=== PATIENT | male | born 1950 | race Caucasian/White ===

== ENCOUNTER → 2017-09-29 08:41 | Outpatient (CLI) | payer BC, SELFPAY ==
[2017-09-29 08:51] LABS: Bacteria 0 SEEN /hpf (None Seen); Mucous, Urine 0 SEEN /hpf (<or=2+); Red Blood Cells-Urine 0 SEEN /hpf (0-5); Squamous Epithelial Cells - UA 0 SEEN /hpf (0-5); White Blood Cells 0 SEEN /hpf (0-5)
[2017-09-29 09:23] LABS: Color, Urine Yellow (Yellow); Glucose, Dipstick Normal (Normal); Ketone-Dipstick Negative (Negative); Leukocyte Esterase-Dipstick Negative /ul (Negative); Nitrite-Dipstick Negative (Negative); Occult Blood-Urine Negative /ul (Negative); Protein-Dipstick Negative (Negative); Urine Bilirubin Dipstick Negative (Negative); Urine Clarity Clear (Clear); Urine Urobilinogen Normal (Normal)
[2017-09-29 09:38] LABS: Absolute Lymphocyte Count 1.22 X10^3/ul (0.83-4.51); Absolute Neutrophil Count 4.9 X10^3/uL (2.0-7.7); Basophil# 0.03 X10^3/uL; Basophil% 0.4 % (0-1); Eosinophil# 0.15 X10^3/uL; Eosinophils% 2.2 % (0-5); Lymphocyte # 1.22 X10^3/ul (4.0); Lymphocyte % 17.5 % (19-41); Mean Corp Hgb Conc 34.8 g/gl (32-36); Mean Corpuscular Hgb 32.5 pg (27.0-32.0); Mean Corpuscular Volume 93.4 fL (80-94); Mean Platelet Vol. 10.4 fl (6.2-12.0); Monocyte# 0.64 X10^3/uL; Monocyte% 9.2 % (0-10); Neutrophil % 70.4 % (47-70); Platelet Count 161 K/mm3 (150-450); RBC Distribution Width CV 13.5 % (11.6-14.6); RBC Distribution Width SD 46.2 fl (35.1-43.9); Red Blood Count 5.57 M/mm3 (4.6-6.2)
[2017-09-29 09:44] LABS: Microalbumin,Random Urine 6.1 mg/L (NO RANGE EST.); Microalbumin:Creatinine Ratio 5.2 mg/g CRE (<30 mg/g CRE)
[2017-09-29 09:52] LABS: Hemoglobin 18.1 g/dl (13.0-16.5); POSITIVE COUNT NO; POSITIVE DIFFERENTIAL NO; POSITIVE MORPHOLOGY NO
[2017-09-29 10:10] LABS: ALB/GLOB Ratio 1.2 RATIO (0.9-2.4); AST(SGOT) 29 U/L (15-37); Alanine Aminotransfer ALT/SGPT 35 U/L (16-61); Alkaline Phosphatase 69 U/L (45-117); Anion Gap 8 (5-15); BUN 13 mg/dL (7-18); BUN/Creat Ratio 14.6 RATIO (10-20); Calcium,Total 8.4 mg/dL (8.5-10.1); Chloride 98 mmol/L (98-107); Creatinine, Serum 0.89 mg/dL (0.70-1.30); EST Glomerular Filtration Rate 90 mL/min (>60); Est Glom Filt Rate - Afr Amer 109 mL/min (>60); Globulin 3.3 g/dL (2.2-4.2); Glucose 101 mg/dL (74-106); Potassium 3.8 mmol/L (3.5-5.1); Protein, Total 7.3 g/dL (6.4-8.2); Sodium Level 134 mmol/L (136-145); Thyroid Stim Hormone (TSH) 1.87 uIU/mL (0.358-3.74)
[2017-10-02 15:30] LABS: CHOLESTEROL TOTAL 168 mg/dL (100-199); HDL-C 43 mg/dL (>39); HDL-P TOTAL 29.5 umol/L (>=30.5); SMALL LDL-P 572 nmol/L (<=527); TRIGLYCERIDES 133 mg/dL (0-149)
[2017-10-03 10:28] LABS: LDL SIZE 20.6 nm (>20.5); LDL-C 98 mg/dL (0-99); LDL-P 1362 nmol/L (<1000); LP-IR SCORE ** 67 (<=45)
== END ==
PROVIDERS: Family Provider Internal Medicine; PCP Internal Medicine; Visit Provider Internal Medicine
DX: I10 Essential (primary) hypertension (principal); Z51.81 Encounter for therapeutic drug level monitoring; E78.2 Mixed hyperlipidemia
CPT/HCPCS: 36415; 80053; 80061; 81001; 82043; 82570; 83704; 84153; 84403; 84443; 85025; G0103

== ENCOUNTER → 2018-07-03 15:22 | Outpatient (CLI) | payer BC, SELFPAY ==
[2014-08-18 07:50] VITALS: BMI 30.8
== END ==
PROVIDERS: Family Provider Internal Medicine; PCP Internal Medicine; Referring Provider Otolaryngology Otolaryngology/Facial Plastic Surgery; Visit Provider Otolaryngology Otolaryngology/Facial Plastic Surgery
DX: J32.9 Chronic sinusitis, unspecified (principal)
CPT/HCPCS: 87070; 87077; 87186; 87205

== ENCOUNTER → 2018-10-10 | Outpatient (CLI) | payer BC, SELFPAY ==
[2014-08-18 07:50] VITALS: BMI 30.8
--- NOTE | 2018-10-10 11:29 | RAD_ITS ---
STUDY: X-RAY - CERVICAL SPINE REASON FOR EXAM: Male, 67 years old. Neck pain and stiffness TECHNIQUE: 7 view(s) of the cervical spine were obtained. COMPARISON: None FINDINGS: Normal anterior atlantoaxial articulation. Normal odontoid process. There is straightening of the normal cervical lordosis. There is multi-level endplate spondylosis. There is multi-level degenerative disc disease with multilevel disc space narrowing. There is multi-level osseous foraminal stenosis. The soft tissue structures are unremarkable. RAD/Cerv Spine 4 or 5 Views IMPRESSION: Multilevel degenerative changes, no acute findings Electronically Signed: Monico Gutierrez MD at 11:56 EDT , Service support ,
== END | disposition home or self-care (01) ==
LOC: HPRAD 11:27
PROVIDERS: Family Provider Internal Medicine; PCP Internal Medicine; Referring Provider Internal Medicine; Visit Provider Internal Medicine
DX: M54.2 Cervicalgia (principal)
CPT/HCPCS: 72050

== ENCOUNTER → 2019-01-04 12:08 | Outpatient (CLI) | payer BC, SELFPAY ==
[2014-08-18 07:50] VITALS: BMI 30.8
[2019-01-04 13:20] LABS: PSA,Total - Annual Screen 4.16 ng/mL (0.00-4.00)
== END ==
PROVIDERS: Family Provider Internal Medicine; PCP Internal Medicine; Referring Provider Nurse Practitioner Adult Health; Visit Provider Nurse Practitioner Adult Health
DX: Z12.5 Encounter for screening for malignant neoplasm of prostate (principal)
CPT/HCPCS: 36415; 84153; G0103

== ENCOUNTER → 2019-02-05 08:00 | Outpatient (CLI) | payer BC, SELFPAY ==
--- NOTE | 2019-02-05 08:00 | PROSBIL_PTH ---
PATIENT: SACHIN EASTMAN LOC: ANTOINETTE U#:[id number] AGE/SX: 74/M ROOM: RE02/05/[address]: Dr. Alexis Hernandez MD : 1950 BED: DIS: SPEC #: [id number] RECD: 02/06/19 09:35 STATUS: LU AILYN #: [id number] LOU: 02/05/19 08:[address]: Alexis Hernandez DEPT: SURGICAL PATHOLOGY RECD BY: Clayton Frazier ENTERED: 02/06/19 09:36 SP TYPE: PROST BX NHGIA DR: Dr. Jes Nazario DO Tissues: A - PROSTATE RIGHT B - PROSTATE RIGHT C - PROSTATE RIGHT D - PROSTATE LEFT E - PROSTATE LEFT F - PROSTATE LEFT Procedures: PROSTATE BX HEADER OPERATION: Prostate biopsy PRE-OP DIAGNOSIS: Elevated PSA TISSUE SUBMITTED: A - Right apex, B - Right mid, C - Right base, D - Left apex, E - Left mid, F - Left base MICROSCOPIC DIAGNOSIS A. Right prostate, apex, core biopsy: Prostatic tissue, negative for malignancy. B. Right prostate, mid, core biopsy: Prostatic tissue, negative for malignancy. C. Right prostate, base, core biopsy: Prostatic tissue, negative for malignancy. D. Left prostate, apex, core biopsy: Prostatic tissue, negative for malignancy. Focal mild chronic inflammation. E. Left prostate, mid, core biopsy: Prostatic tissue, negative for malignancy. Focal mild chronic inflammation. F. Left prostate, base, core biopsy: Prostatic tissue, negative for malignancy. Focal mild chronic inflammation. SJ:karla 02/07/19 MICROSCOPIC DESCRIPTION Slides are reviewed. GROSS DESCRIPTION A - Received is one container designated prostate, right apex. The specimen consists of two elongated fragments of light ziegler-white soft tissue measuring 0.3 and 1 cm in length and 0.1 cm in diameter. The specimen is totally submitted in one cassette. B - Received is one container designated prostate, right mid. The specimen consists of two elongated fragments of light ziegler-white soft tissue each measuring 1 cm in length and 0.1 cm in diameter. The specimen is totally submitted in one cassette. C - Received is one container designated prostate, right base. The specimen consists of two elongated fragments of light ziegler-white soft tissue measuring 0.5 and 0.7 cm in length and 0.1 cm in diameter. The specimen is totally submitted in one cassette. D - Received is one container designated prostate, left apex. The specimen consists of one elongated fragment of light ziegler-white soft tissue measuring 1.2 cm in length and 0.1 cm in diameter. The specimen is totally submitted in one cassette. E - Received is one container designated prostate, left mid. The specimen consists of two elongated fragments of light ziegler-white soft tissue measuring 1.5 and 2 cm in length and 0.1 cm in diameter. The specimen is totally submitted in one cassette. F - Received is one container designated prostate, left base. The specimen consists of two elongated fragments of light ziegler-white soft tissue measuring 1.2 and 1.7 cm in length and 0.1 cm in diameter. The specimen is totally submitted in one cassette. / SJ:rg 02/06/19 TC:[address] [facility]: [id number] ADDENDUM ADDENDUM ADDENDUM ADDENDUM ADDENDUM ADDENDUM 02/08/2019 09:38 ADDENDUM 02/08/2019 09:38 ADDENDUM 02/08/2019 09:38 ADDENDUM 02/08/2019 09:38 ADDENDUM 02/08/2019 09:38 A. Right prostate, apex, core biopsy: During QC review by Dr. 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 SJ:karla 02/08/19
== END ==
PROVIDERS: Family Provider Internal Medicine; PCP Internal Medicine; Referring Provider Urology; Visit Provider Urology
DX: N41.9 Inflammatory disease of prostate, unspecified (principal); R97.20 Elevated prostate specific antigen [PSA]
CPT/HCPCS: 88305; G0416

== ENCOUNTER → 2019-02-22 11:01 | Outpatient (CLI) | payer BC, SELFPAY ==
[2014-08-18 07:50] VITALS: BMI 30.8
[2019-02-22 12:48] LABS: Estradiol 23.9 pg/mL
[2019-02-25 15:08] LABS: Testosterone, % Free 3.34 % (1.50-4.20); Testosterone, Free 21.88 ng/dL (5.00-21.00)
[2019-02-25 22:41] LABS: Testosterone, Total 655 ng/dL (264-916)
== END ==
PROVIDERS: Family Provider Internal Medicine; PCP Internal Medicine
DX: E29.1 Testicular hypofunction (principal)
CPT/HCPCS: 36415; 82627; 82670; 84402; 84403; 82626

== ENCOUNTER 2020-04-07 12:11 | Outpatient (CLI) | payer BC, SELFPAY ==
[2019-05-27 15:09] VITALS: BMI 32.6
[2020-04-07 12:35] VITALS: BP 151/91; PULSE 97; RESP 18; TEMP 37.3; O2SAT 97; BMI 31.2
[2020-04-07 13:35] VITALS: BP 147/87; PULSE 88; RESP 20; TEMP 37.8; O2SAT 96
[2020-04-07 14:05] VITALS: BP 150/83; PULSE 88; RESP 18; TEMP 37.6; O2SAT 97
[2020-04-07 14:25] VITALS: BP 152/84; PULSE 85; RESP 18; TEMP 37.8; O2SAT 97
[2020-04-07 14:55] VITALS: BP 155/92; PULSE 90; RESP 18; TEMP 37.9; O2SAT 99
[2020-04-07 15:25] VITALS: BP 153/88; PULSE 90; RESP 18; TEMP 37.8; O2SAT 98
== END 2020-04-07 15:39 | disposition home or self-care (01) ==
LOC: MS2OUT 12:12 → MS2 12:13
PROVIDERS: PCP Internal Medicine; Referring Provider Nurse Practitioner Acute Care; Visit Provider Nurse Practitioner Acute Care
DX: U07.1 COVID-19 (principal)
CPT/HCPCS: 96365; J7050; M0239; Q0239

== ENCOUNTER 2020-08-21 07:12 | Day surgery (SDC) | payer BC, SELFPAY ==
[2020-08-21] VITALS (7 sets, daily range): BP systolic 88–163; BP diastolic 49–88; PULSE 57–71; RESP 16; TEMP 36.1–36.8; O2SAT 94–100; BMI 30.9
[2020-08-21] MEDS: Lactated Ringers 1,000 ML 100 ML IV (07:53)
--- NOTE | 2020-08-21 07:55 | H&P.OPEN ---
HPI - General HPI Narrative SACHIN EASTMAN, is a 69 M who presents for surveillance colonoscopy. The patient has last colonoscopy 5 years ago. The patient does have personal history of adenomatous polyps. Patient denies any abdominal pain or blood in his stool. He has no family history of colon cancer. [facility] Medical History (Updated 08/21/20 @ 07:[address] Get Boyle MD) Back pain DDD (degenerative disc disease), lumbar Hemorrhoids HLD (hyperlipidemia) HTN (hypertension) Hyperglycemia, unspecified Non-smoker Segmental and somatic dysfunction of lumbar region Segmental and somatic dysfunction of pelvic region Wears dentures Home Medications hydrochlorothiazide 25 mg PO DAILY 08/18/14 [History Last Taken Unknown] losartan 100 mg tablet 100 mg PO DAILY 05/04/19 [History Last Taken Unknown] ascorbate calcium (vitamin C) 500 mg tablet 1,000 mg PO BID 04/07/20 [History Last Taken Unknown] aspirin 81 mg tablet,delayed release 81 mg PO DAILY 04/07/20 [History Last Taken Unknown] beta carotene 10,000 unit capsule 10,000 unit PO DAILY 04/07/20 [History Last Taken Unknown] icosapent ethyl 1 gram capsule 2 g PO BID 04/07/20 [History Last Taken Unknown] mupirocin 2 % topical ointment 1 applic TOPICAL TID 04/07/20 [History Last Taken Unknown] naproxen sodium 220 mg capsule 220 mg PO Q6H PRN cap 04/07/20 [History Last Taken Unknown] niacin 500 mg tablet,extended release 24 hr 500 mg PO QHS 04/07/20 [History Last Taken Unknown] sildenafil 100 mg tablet 100 mg PO DAILY PRN 04/07/20 [History Last Taken Unknown] tadalafil 5 mg tablet 5 mg PO DAILY 04/07/20 [History Last Taken Unknown] testosterone 20.25 mg/1.25 gram (1.62 %) transdermal gel pump 3 pump TOPICAL DAILY 04/07/20 [History Last Taken Unknown] vitamin E (dl, acetate) 45 mg (100 unit) capsule 100 unit PO DAILY 04/07/20 [History Last Taken Unknown] zinc 50 mg tablet 50 mg PO DAILY 04/07/20 [History Last Taken Unknown] calcium carb,[id number] D3 1 tab PO DAILY 08/11/20 [History Last Taken Unknown] prasterone (dhea) [DHEA] 25 mg PO DAILY 08/11/20 [History Last Taken Unknown] procyanidolic oligomers [Pycnogenol] 1 mg PO DAILY 08/11/20 [History Last Taken Unknown] vitamin B complex 1 tab PO DAILY 08/11/20 [History Last Taken Unknown] Allergy/AdvReac Type Severity Reaction Status Date / Time No Known Allergies Allergy Verified 08/21/20 07:47 Family History Mother Hypertension Surgical History (Updated 08/11/20 @ 09:21 by Haydee Lucai) H/O basal cell carcinoma excision Social History (Updated 04/07/20 @ 09:21 by Patience Molina 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, 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) Smoking Status: Never smoker alcohol intake: current alcohol intake frequency: 0-2 drinks per day Alcohol type: beer Past Medical/Surgical History Planned Operation Planned Operative Procedure/s: COLONOSCOPY Previous Hospitalizations/Surgeries HX Hospitalizations: No Any Problems With Anesthesia: No You/Your Family Experience Fever (Hyperthermia) With Anes: No Cholinesterase deficiency: No Cardiovascular Hx Hypertension: Yes (CONTROLLED ON MED) Respiratory Hx Sleep Apnea: No Hx Respiratory Tract Infection/Cold (presently): No Do You Snore Loudly (louder than talking or can be heard): No Do You Often Feel Tired/ Fatigued/ Sleepy Dring Daytime?: No Has Anyone Observed You Stop Breathing During Sleep?: No Result (for STOP score): Negative Smoking Status: Never smoker Neurological Does patient have nerve stimulator: No Miscellaneous Recent Exposure to Contagious Disease: No Allergies No Known Allergies Allergy (Verified 08/21/20 07:47) Discharge Is Pt Admitted From a Long-Term, or a Retirement: No After D/C, Where Do you Plan to Go: Return Home Vital Signs Vital Signs Vital Signs: 08/21/20 07:48 Temperature 98.3 F Temperature Source Temporal Pulse Rate 71 Respiratory Rate 16 Respiratory Pattern Normal Blood Pressure 163/88 H Blood Pressure Mean 113 Blood Pressure Source Monitor Blood Pressure Position Semi-Fowlers Blood Pressure Location Left Arm Pulse Ox 100 Oxygen Delivery Method Room Air Physical Exam Const alert and oriented x3 Resp normal respiratory effort Cardio regular rate and regular rhythm GI normal to inspection, nondistended, normoactive bowel sounds Assessment & Plan Assessment/Plan (1) History of colon polyps: PLAN: Patient has a history of colon polyps and his last colonoscopy was 5 years ago. The patient requires surveillance colonoscopy. I explained endoscopy in detail to the patient. I explained the risks including but not limited to stroke or heart attack with anesthesia, perforation of the GI tract, bleeding, infection. I explained that any of these could necessitate further emergency surgery. The patient understands and all questions were answered sufficiently. The patient wishes to proceed with procedure. Get Boyle MD Pager: [facility] [address] [place] [address] Office: Surgery Risks - Colonoscopy Risks Include but are not Limited To: Risks include but are not limited to: Bleeding, perforation requiring further surgery, inability to complete colonoscopy requiring barium enema.
--- NOTE | 2020-08-21 08:29 | OP.CCLET_ITS ---
08/21/2020 Jes Nazario [address] [place] [address] Re : Colonoscopy procedure for [facility] Dear Dr. Nazario This procedure was performed on Friday, August 21, 2020. My impressions and recommendations are as follows: Impressions : - Non-bleeding internal hemorrhoids. - The examination was otherwise normal on direct and retroflexion views. - No specimens collected. Recommendations : - Discharge patient to home. - Resume previous diet. - Continue present medications. - Repeat colonoscopy is not recommended due to current age (66 years or older) for screening purposes. My findings are described in the full procedure note, which is enclosed. If I can be of further assistance, please feel free to contact me at Doctor phone number(s): , Work: . Sincerely, Get Boyle MD 08/21/2020 8:28:46 AM This report has been signed electronically.
--- NOTE | 2020-08-21 08:29 | OP.COLON_ITS ---
Patient Name: Ranjit Louis Procedure Date: 08/21/2020 7:54 AM Date of : 1950 Age: 69 Procedure: Colonoscopy Indications: Surveillance: Personal history of adenomatous polyps on last colonoscopy 5 years ago Providers: Get Boyle MD Medicines: Monitored Anesthesia Care Patient Profile: This is a 69 year old male. Refer to note in patient chart for documentation of history and physical. Last Colonoscopy: 5 years ago. Complications: No immediate complications. Estimated blood loss: Minimal. Procedure: Pre-Anesthesia Assessment: - Prior to the procedure, a History and Physical was performed, and patient medications and allergies were reviewed. The patient's tolerance of previous anesthesia was also reviewed. The risks and benefits of the procedure and the sedation options and risks were discussed with the patient. All questions were answered, and informed consent was obtained. Prior Anticoagulants: The patient has taken no previous anticoagulant or antiplatelet agents. After reviewing the risks and benefits, the patient was deemed in satisfactory condition to undergo the procedure. After I obtained informed consent, the scope was passed under direct vision. Throughout the procedure, the patient's blood pressure, pulse, and oxygen saturations were monitored continuously. The Colonoscope was introduced through the anus and advanced to the cecum, identified by appendiceal orifice and ileocecal valve. The colonoscopy was performed without difficulty. The patient tolerated the procedure well. The quality of the bowel preparation was good. Scope In: Scope Withdrawal Time 0 hours 6 minutes 7 seconds Scope Out: 8:23:00 AM Findings: Non-bleeding internal hemorrhoids were found during retroflexion. The exam was otherwise without abnormality on direct and retroflexion views. Impression: - Non-bleeding internal hemorrhoids. - The examination was otherwise normal on direct and retroflexion views. - No specimens collected. Recommendation: - Discharge patient to home. - Resume previous diet. - Continue present medications. - Repeat colonoscopy is not recommended due to current age (66 years or older) for screening purposes. Procedure Code(s): --- Professional --- 30690, Colonoscopy, flexible; diagnostic, including collection of specimen(s) by brushing or washing, when performed (separate procedure) Diagnosis Code(s): --- Professional --- Z86.010, Personal history of colonic polyps K64.8, Other hemorrhoids CPT copyright 2017 [employer]. All rights reserved. The codes documented in this report are preliminary and upon cigarette examiner review may be revised to meet current compliance requirements. Get Boyle MD 08/21/2020 8:28:46 AM This report has been signed electronically. Number of Addenda: 0 Note Initiated On: 08/21/2020 7:54 AM
== END 2020-08-21 09:27 ==
LOC: EN 07:18 → AC 07:19
PROVIDERS: Surgery; PCP Internal Medicine; Referring Provider Internal Medicine; Visit Provider Surgery
PROC: 0DJD8ZZ Inspection of Lower Intestinal Tract, Via Natural or Artificial Opening Endoscopic (ICD-10-PCS; CPT 45378; principal; 2020-08-21 08:10)
DX: Z86.010 Personal history of colon polyps (principal); K64.8 Other hemorrhoids; I10 Essential (primary) hypertension; E78.5 Hyperlipidemia, unspecified; M51.36 Other intervertebral disc degeneration, lumbar region; Z79.82 Long term (current) use of aspirin; Z79.899 Other long term (current) drug therapy
CPT/HCPCS: 45378; J7120; J2405

== ENCOUNTER → 2022-01-19 | Outpatient (CLI) | payer BC, SELFPAY ==
[2022-01-19 11:48] LABS: PSA,Total- Diagnostic 4.86 ng/mL (0.0-4.0)
== END | disposition home or self-care (01) ==
LOC: LAB 10:17
PROVIDERS: PCP Internal Medicine; Referring Provider Urology; Visit Provider Urology
DX: R97.20 Elevated prostate specific antigen [PSA] (principal)
CPT/HCPCS: 36415; 84153

== ENCOUNTER → 2022-07-18 | Outpatient (CLI) | payer BC, SELFPAY ==
[2022-07-18 18:14] LABS: PSA,Total- Diagnostic 5.67 ng/mL (0.0-4.0)
== END | disposition home or self-care (01) ==
LOC: LAB 16:30
PROVIDERS: PCP Internal Medicine; Referring Provider Urology; Visit Provider Urology
DX: R97.20 Elevated prostate specific antigen [PSA] (principal)
CPT/HCPCS: 36415; 84153

== ENCOUNTER → 2022-07-23 | Outpatient (CLI) | payer BC, SELFPAY ==
--- NOTE | 2022-07-23 09:31 | MRI_ITS ---
STUDY: MRI LUMBAR SPINE WITHOUT CONTRAST REASON FOR EXAM: Male, 71 years old. Low back pain and radiculopathy x 4 wks TECHNIQUE: Standardized fat and water weighted pulse sequences were obtained in the sagittal and axial planes. COMPARISON: Lumbar spine radiographs 12/08/2015. FINDINGS: T10-T11: (Sagittal only). Normal endplates. Normal disc height and morphology. Normal central canal and bilateral intervertebral neural foramina. T11-T12: (Sagittal only). Normal endplates. Pronounced disc space height narrowing. No ventral extradural defect. Normal central canal and bilateral intervertebral neural foramina. T12-L1: Anterior marginal spurs. Tiny Schmorl''s node in the anterior T12 inferior endplate with mild reactive marrow edema. Normal L1 superior endplate. Moderate disc space height narrowing. Mild ventral extradural defect is small right sided posterior bulging annulus. No significant facet arthropathy. Normal central canal and bilateral lateral recesses. Normal bilateral intervertebral neural foramina. Normal lumbar lordosis. There is no substantial scoliosis. Normal conus medullaris that terminates at the upper T12 vertebral body level. L1-2: Prominent Schmorl''s node in the L1 inferior endplate. Tiny Schmorl''s node in the L2 superior endplate. Moderately pronounced disc space height narrowing. Mild bilateral degenerative facet arthropathy. Mild dorsal epidural lipomatosis. Pronounced central canal stenosis with an AP canal diameter of 4.4 mm. Mild ventral extra defect due to posterior marginal spurs. Normal bilateral lateral recesses. Mild stenosis of the bilateral intervertebral neural foramina. L2-3: Broad Schmorl''s node in the L2 inferior endplate. Modic type II degenerative vertebral marrow fat infiltration underneath the vertebral endplates. Moderately pronounced disc space height narrowing. Moderate right degenerative facet arthropathy. Mild left degenerative facet arthropathy. Mild ventral extradural defect due to posterior bulging annulus and posterior marginal spurs. Severe central canal stenosis with an AP canal diameter of 3.4 mm. Normal bilateral lateral recesses. Mild stenosis of the right intervertebral neural foramen. Normal left intervertebral neural foramen. L3-4: Mild right-sided old central compression fracture of the upper L4 vertebral body. Modic type II degenerative vertebral marrow fat infiltration underneath the L4 inferior endplate. Normal L3 inferior endplate. Mild disc space height narrowing. Mild bilateral degenerative facet arthropathy. Moderately pronounced central canal stenosis with an AP canal diameter of 6.3 mm. Normal bilateral lateral recesses. Mild stenosis of the bilateral intervertebral neural foramina. L4-5: Prominent anterior marginal spurs. Normal endplates. Moderate disc space height narrowing. Small posterior bulging annulus. Mild asymmetric degenerative facet arthropathy. Mild central canal stenosis with an AP canal diameter of 9 mm. Mild stenosis of the right lateral recess. Normal left lateral recess. Mild stenosis of the bilateral intervertebral neural foramina. Small round upper L5 benign vertebral body hemangioma. L5-S1: Normal endplates. Mild disc space height narrowing. No significant arthropathy of the hypoplastic facet joints. Suspicious small left-sided far lateral disc protrusion (series 7 and 6, image 3). Tapered termination of the thecal sac surrounded by epidural lipomatosis. Normal bilateral lateral recesses. Normal bilateral intervertebral neural foramina. Normal visualized sacral ala. Normal visualized paraspinous soft tissue structures. MRI/Spine Lumbar (Routine) IMPRESSION: 1. Suspicious small left L5-S1 far lateral disc protrusion (series 7 and 6, image 3). 2. Severe central canal stenosis at L2-L3 disc space level with an AP canal diameter of 3.4 mm. 3. Pronounced central canal stenosis at L1-L2 disc space level with an AP canal diameter of 4.4 mm. 4. Moderately pronounced central canal stenosis at L3-L4 disc space level with an AP canal diameter of 6.3 mm. 5. Mild central canal stenosis at L4-L5 disc space level with an AP canal diameter of 9 mm, mild stenosis of the right lateral recess and mild stenosis of the bilateral intervertebral neural foramina. Electronically Signed: Frank Silvestre MD at 10:53 EDT ,
== END | disposition home or self-care (01) ==
PROVIDERS: PCP Internal Medicine; Referring Provider Anesthesiology Pain Medicine; Visit Provider Anesthesiology Pain Medicine
DX: M54.10 Radiculopathy, site unspecified (principal)
CPT/HCPCS: 72148

== ENCOUNTER → 2022-09-05 | Outpatient (CLI) | payer BC, SELFPAY ==
--- NOTE | 2022-09-05 13:25 | MRI_ITS ---
ACR Level 3 findings have been noted. An addendum which confirms receipt of the report will follow. STUDY: MR PELVIS WITH T WITHOUT CONTRAST REASON FOR EXAM: Male, 71 years old. ELEVATED PSA TECHNIQUE: Standardized fat and water weighted pulse sequences were obtained in all 3 orthogonal planes, pre-and post contrast administration. IV Yes was administered for the contrast portion of the examination. COMPARISON: None. FINDINGS: Prostate 5.8 x 4.8 x 5.7 cm (82ml). Transitional zone: Heterogeneous enlargement without focal suspicious mass Peripheral zone: Left posterior body 1.1 cm focal markedly hypointense ADC lesion (Image 20), mild ill-defined increased signal on DWI, with focal low T2 signal, and mild relative increased enhancement compared to the right side, together compatible with PI-RAD 4 lesion. Additional posterior central body moderate 1.0 cm low ADC signal (ADC image 20) and 1.3 cm low ADC signal (ADC image 21) near base of the seminal vesicles, isointense on DWI without definitive enhancement (PI-RAD 3). Moderate broad low ADC signal spanning 2.9 cm at the left posterior apex (Image 16) with mild relative increased DWI signal, together with enhancement PI-RAD 4. No focal capsular bulge or gross extracapsular extension of disease. Retroprostatic angles are preserved. Unremarkable neurovascular bundles. Lateral pelvic sidewalls are unremarkable. No overt adenopathy. Normal urinary bladder. Normal visualized small intestine. Normal visualized colon. No acute osseous finding. Left iliopsoas multifocal intramuscular rim-enhancing fluid collections spanning 2.3, 2.2, and 1.3 cm without joint effusion. Small fat-containing left inguinal hernia without inflammation. MRI/Pelvis W/WO Contrast IMPRESSION: Multiple left posterior and central posterior peripheral zone lesions suspicious for prostatic carcinoma including 1.1 cm at the left posterior base (PI-RAD 4), 2.9cm left posterior apex (PI-RAD 4), and posterior central body (PI-RAD 3). No evidence of extracapsular extension of disease. ) Multi focal thin-walled rim-enhancing fluid collections within the left psoas muscle without surrounding edema of unknown etiology. Correlate for clinical evidence of infection or trauma. Comparison with prior imaging would be helpful if available. Electronically Signed: Ubaldo Sher MD at 9:40 EDT ,
[2022-09-05 14:09] LABS: CREATININE FINGERSTICK < 0.9 mg/dL (0.70-1.30); EGFR FINGERSTICK > 60.0000 mL/min (>60)
== END | disposition home or self-care (01) ==
LOC: MRI 13:19
PROVIDERS: PCP Internal Medicine; Referring Provider Urology; Visit Provider Urology
DX: R97.20 Elevated prostate specific antigen [PSA] (principal)
CPT/HCPCS: 72197; A9575

== ENCOUNTER → 2022-09-29 | Outpatient (CLI) | payer BC, SELFPAY ==
--- NOTE | 2022-09-29 | IMM_PTH ---
PATIENT: SACHIN EASTMAN LOC: ANTOINETTE U#:[id number] AGE/SX: 71/M ROOM: RE09/29/[address]: Dr. Alexis Hernandez MD : 1950 BED: DIS: 09/29/2022 SPEC #: [id number] RECD: 10/03/22 13:42 STATUS: LU REQ #: [id number] LOU: 09/29/22 00:[address]: Alexis Hernandez DEPT: IMMUNOHISTOCHEMISTRY RECD BY: Neha Tse ENTERED: 10/03/22 13:42 SP TYPE: IMMUNO OTHR DR: Dr. Jes Nazario, Tissues: F - PROSTATE LEFT Procedures: P40 (add) 34BE12 (initial) PHYSICIAN & INSTITUTION [place] [id number] SPECIMEN INFORMATION: Tissue Source: F - Left prostate, base, core biopsy Clinical Info: Elevated PSA Specimen Number: [id number] CPT code: 60923, 66377 METHODOLOGY: Deparaffinized sections of prefer/formalin-fixed tissue or PAP/DQ stained slides are incubated with monoclonal/polyclonal antibodies/oligonucleotide probes. Localization is made via biotin free immunoperoxidase method. Appropriate controls are performed and reacted as expected. Results on target cell population are indicated in the following table: RESULTS: ANTIBODY / CLONE RESULT Block F P40 (BC28) positive 34BE12 (34BE12) positive These tests were developed and their performance characteristics determined by [facility]. They may not have been cleared or approved by the U.S. Food and Drug Administration. The FDA has determined that such clearance or approval is not necessary. The above immunohistochemical/dualISH markers are ordered and reviewed by the Pathologist. INTERPRETATION: F. Left prostate, base, core biopsy: Focal high-grade prostatic intraepithelial neoplasia (HGPIN). ENRRIQUE:karla 10/06/2022
--- NOTE | 2022-09-29 10:15 | PROSBIL_PTH ---
PATIENT: SACHIN EASTMAN LOC: ANTOINETTE U#:[id number] AGE/SX: 71/M ROOM: RE09/29/[address]: Dr. Alexis Hernandez MD : 1950 BED: DIS: 09/29/2022 SPEC #: [id number] RECD: 09/29/22 16:32 STATUS: LU REBenton #: [id number] LOU: 09/29/22 10:[address]: Alexis Hernandez DEPT: SURGICAL PATHOLOGY RECD BY: Yadira Phillips ENTERED: 09/30/22 07:48 SP TYPE: PROST BX NGHIA DR: Dr. Jes Nazario DO Tissues: A - PROSTATE RIGHT B - PROSTATE RIGHT C - PROSTATE RIGHT D - PROSTATE LEFT E - PROSTATE LEFT F - PROSTATE LEFT Procedures: PROSTATE BX HEADER OPERATION: Prostate biopsy PRE-OP DIAGNOSIS: Elevated PSA TISSUE SUBMITTED: A - Right apex, B - Right mid, C - Right base, D - Left apex, E - Left mid, F - Left base MICROSCOPIC DIAGNOSIS A. Right prostate, apex, core biopsy: Prostatic tissue, negative for malignancy. B. Right prostate, mid, core biopsy: Prostatic tissue, negative for malignancy. C. Right prostate, base, core biopsy: Prostatic tissue, negative for malignancy. D. Left prostate, apex, core biopsy: Prostatic tissue, negative for malignancy. E. Left prostate, mid, core biopsy: Prostatic tissue, negative for malignancy. F. Left prostate, base, core biopsy: Focal high-grade prostatic intraepithelial neoplasia (HGPIN). See comment. SJ:karla 10/03/2022 COMMENT F. Immunohistochemistry ([id number]) supports the above diagnosis. MICROSCOPIC DESCRIPTION Slides are reviewed. GROSS DESCRIPTION A - Received is one container designated prostate, right apex. The specimen consists of two elongated fragments of light ziegler-white soft tissue measuring 0.3 and 0.8 cm in length and 0.1 cm in diameter. The specimen is totally submitted in one cassette. B - Received is one container designated prostate, right mid. The specimen consists of two elongated fragments of light ziegler-white soft tissue measuring 0.5 and 1.5 cm in length and 0.1 cm in diameter. The specimen is totally submitted in one cassette. C - Received is one container designated prostate, right base. The specimen consists of two elongated fragments of light ziegler-white soft tissue measuring 1.3 and 1.5 cm in length and 0.1 cm in diameter. The specimen is totally submitted in one cassette. D - Received is one container designated prostate, left apex. The specimen consists of two elongated fragments of light ziegler-white soft tissue each measuring 1.5 cm in length and 0.1 cm in diameter. The specimen is totally submitted in one cassette. E - Received is one container designated prostate, left mid. The specimen consists of two elongated fragments of light ziegler-white soft tissue each measuring 1.0 cm in length and 0.1 cm in diameter. The specimen is totally submitted in one cassette. F - Received is one container designated prostate, left base. The specimen consists of two elongated fragments of light ziegler-white soft tissue each measuring 1.5 cm in length and 0.1 cm in diameter. The specimen is totally submitted in one cassette. / SJ:rg 09/30/2022 TC:5 CPT: G0146 ADDENDUM ADDENDUM ADDENDUM ADDENDUM ADDENDUM ADDENDUM ADDENDUM ADDENDUM ADDENDUM ADDENDUM ADDENDUM ADDENDUM ADDENDUM ADDENDUM ADDENDUM ADDENDUM ADDENDUM ADDENDUM ADDENDUM ADDENDUM 11/15/2022 09:39 ADDENDUM 11/15/2022 09:39 ADDENDUM 11/15/2022 09:39 ADDENDUM 11/15/2022 09:39 ADDENDUM 11/15/2022 09:39 This addendum is added to incorporate an outside pathology consultation report. The case was examined at [facility] (#[id number]) and the following diagnosis was rendered. A. Right prostate, apex, core biopsy: Prostate tissue with no significant pathologic change. B. Right prostate, mid, core biopsy: Prostate tissue with no significant pathologic change. C. Right prostate, base, core biopsy: Prostate tissue with no significant pathologic change. D. Left prostate, apex, core biopsy: Rare atypical glands. E. Left prostate, mid, core biopsy: Prostate tissue with no significant pathologic change. F. Left prostate, base, core biopsy: Focal atypical intraductal proliferation and rare atypical gland. Please see complete above mentioned consultation report in EMR
== END | disposition home or self-care (01) ==
LOC: LABSPEC 16:26
PROVIDERS: PCP Internal Medicine; Referring Provider Urology; Visit Provider Urology
DX: R97.20 Elevated prostate specific antigen [PSA] (principal)
CPT/HCPCS: 88305; 88341; 88342; G0416

== ENCOUNTER 2022-11-04 11:30 | Outpatient (RCR) | payer BC, SELFPAY ==
--- NOTE | 2022-07-22 09:31 | HP.PTEVAL_ITS ---
Patient's Visit Information SACHIN EASTMAN is a 71 year old M referred to Physical Therapy by Dr. Jes Nazario DO with a diagnosis of BACK PAIN. Date of Evaluation: 07/22/22 Physical Therapist: Lela Morton PT, Cert MDT - Visit Plan Frequency: 2-3x /Week Duration: 4-6 Weeks Plan: ULTRASOUND. FOCUS ON CORE STABILITY AND PROPER INDEP EX SELECTION AND TECHNIQUE. POSTURE CORRECTION/STRENGTHENING, INSTRUCTION IN APPROPRIATE BODY MECHANICS AND ACTIVITY MODIFICATIONS. DLS STARTING WITH A NEUTRAL SPINE PROGRESSING ROM TOLERATED. LÁZARO LE ROM, STRETCHING AND STRENGTHENING. HEP INSTRUCTION. - Subjective Work/Leisure: [employer]. LIVES ON [address] - WORKS OUTSIDE. Present symptoms: R SI AND BUTTOCK REGION PAIN. OCCASSIONALLY R LATERAL LOWER LEG SX THAT IS HARD TO DESCRIBE - MAYBE NUMBNESS. Present since: ABOUT 4 WKS AGO. Pain Scale: WORSE 3/10, LEAST 0/10. Currently: 0/10. Is it getting better, worse or staying the same: BETTER. Commenced as a result of: LIFTING TO CLEAN OUT OFFICE OR UNLOADING A LOT OF BRUSH. Symptoms at onset: SAME R LOW BACK/BUTTOCK AREA PAIN. Worse: STANDING IN ONE SPOT AT TRACK MEET, STANDING IN EPISCOPALIAN, WALKING, TRYING TO WALK AFTER FLIGHT. Better: SI BELT, ICE, SQUATTING DOWN, SITTING AND LYING DOWN. FOAM ROLLING. Disturbed sleep: NO. Previous history/Previous treatment: PHYSICAL THERAPY ABOUT 20 YEARS AGO. CHIROPRACTIC. FOAM ROLLING TYPICALLY DAILY FOR ABOUT 30 YEARS. NO BACK SURGERY. ACCUPUNCTURE. A FEW YEARS AGO HAD R FOOT NUMBNESS AFTER CHIROPRACTIC MANIPULATION. Treatment this episode: CHIROPRACTIC, CONSULT WITH DR. KLINE AND TAMY ABOUT A WK AGO - ABOLISHED PAIN X ABOUT 6 WKS. ACCUPUNCTURE. MASSAGE. 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 ANTI-INFLAMMATORY. CURRENTLY JUST DOING ALEVE. Coughing/sneezing/straining: NEGATIVE. Gait: NORMAL. Bowel or Bladder D ysfunction: NO. Accidents: NO. Unexplained weight loss: NO. Imaging: NO RECENT X-RAYS. MRI PENDING TOMORROW MORNING. PMH/Recent major surgery: HTN. OTHER: GOING ON CRUISE IN 1 WK. - Objective Sitting/Standing Posture: L SHLD LEVEL LOWER THAN RIGHT. FH. RSH'S. STANDS IN PPT. SHIFTED R BUT ABLE TO CROSS MID-LINE. Correction of posture: PATIENT RESPONDED WELL TO PASSIVE POSTURE CORRECTION IN CLINIC WITH LUMBAR SUPPORT. Other Observations: THIS PATIENT AMBULATES INDEP'LY INTO PT WITH INCREASED TRUNK FLEXION, NO AD'S AND NO LOB. INDEP TRANSFER SIT TO STAND WITHOUT UE ASSIST. Sensory deficit: LÁZARO LE LIGHT TOUCH SENSATION GROSSLY INTACT AND SYMMETRICAL. ROM deficit: TIGHT LÁZARO LE HS'S, HIP FLEXORS, LÁZARO HIP ROTATORS AND GASTROC SOLEUS COMPLEX'S. R HIP IR MORE LIMITED THAN LEFT. Motor deficit: LÁZARO LE STRENGTH GROSSLY 5/5 WITH MMT'ING EXCEPT HIPS 4/5. Reflexes: 2/3 LÁZARO LE'S. Dural Signs: NEGATIVE LÁZARO LE'S. Lumbar mvmt loss: flex - NIL. ext - CANDICE. R SG - CANDICE. L SG - CANDICE. PATIENT DENIES PAIN WITH LUMBAR ROM TESTING ALL PLANES. Core strength: POOR. Palpation: NO ACUTE LUMBAR, SACRAL OR SI JT TENDERNESS. INCREASED M. TONE LÁZARO PARASPINALS. TREATMENT: NEUROMUSCULAR REEDUCATION - RETRAINING OF MVMT AND POSTURE FOR SITTING, LYING AND STANDING ACTIVITIES. HEP CHECK. DISCUSSED POC. - Balance/Special Test Scores Oswestry Low Back Score: 6 - Goals Goal 1:: ABOLISH R LOW BACK AND R LE SX'S. Goal Time Frame: 4-6 Weeks Goal 2:: IMPROVE LIFTING, STANDING AND WALKING FUNCTION Goal Time Frame: 4-6 Weeks Goal 3:: INSTRUCT IN PROPHYLAXIS Goal Time Frame: 4-6 Weeks - Anticipated Interventions Patient/Client Instruction: Educate patient on: Condition, Plan of Care, Risk Factors For the Purpose of:: To improve self management Therapeutic Exercise to Include: Strength training, Body mechanics, Postural training, Flexibilty training, Neuromotor development, In an aquatic setting, Dynamic Lumbar Stabilization For the Purpose of:: To decrease pain, To increase ROM, To improve muscle performance and motor function, To increase tolerance to activity/condition/position, To improve ability of physical actions for home/community/work/leisure, To improve gait and locomotor functions Cryotherapy (ice pack, ice massage): Yes Thermo therapy (hot pack): Yes Ultrasound (thermal/non thermal): Yes For the Purpose of:: To decrease pain, To improve nutrient delivery to tissue Thank you for the opportunity to evaluate your patient. For Medicare and Medicare HMO plans, please review the plan of care and approve it. It will need to be FAXED BACK to us at [phone] for Medicare purposes. For Medicare only, by signing this I certify the plan of care. Please let me know if there are questions or concerns regarding this plan of care. Physician Signature: Date:
--- NOTE | 2023-01-24 15:27 | HP.PT.NRP ---
Patient Information Patient Information: SACHIN EASTMAN was seen in my office for initial evaluation on 07/22/22. The following Plan of Care was established for this patient: POC Established Initial Frequency: 2-3x /Week Initial Duration: 4-6 Weeks Anticipated Interventions Patient/Client Instruction: Educate patient on: Condition, Plan of Care and Risk Factors For the Purpose of:: To improve self management Therapeutic Exercise to Include: Strength training, Body mechanics, Postural training, Flexibilty training, Neuromotor development, In an aquatic setting and Dynamic Lumbar Stabilization For the Purpose of:: To decrease pain, To increase ROM, To improve muscle performance and motor function, To increase tolerance to activity/condition/position, To improve ability of physical actions for home/community/work/leisure and To improve gait and locomotor functions Cryotherapy (ice pack, ice massage): Yes Thermo therapy (hot pack): Yes Ultrasound (thermal/non thermal): Yes For the Purpose of:: To decrease pain and To improve nutrient delivery to tissue Last Seen Last Seen: This patient was last seen in our office 11/04/22. Pertinent comments regarding their Physical therapy will appear below: This patient did well with Physical Therapy and at the time of his last visit was resuming independent exercise. He has not returned for any formal Physical Therapy and is appropriate to return to MD for further follow-up as needed. At this point I will be discontinuing this patient from physical therapy. I would be happy to see this patient again in the future if found appropriate by the physician. Thank you! Lela Morton, PT, Cert MDT Balance/Gait/Functional tests Balance/Special Test Scores Oswestry Low Back Score: 6
== END 2022-11-04 19:00 | disposition home or self-care (01) ==
LOC: PT 11:30
PROVIDERS: PCP Internal Medicine; Referring Provider Internal Medicine; Visit Provider Internal Medicine
DX: M54.9 Dorsalgia, unspecified (principal)
CPT/HCPCS: 97035; 97110; 97112; 97162; 97530

== ENCOUNTER → 2022-11-08 | Outpatient (CLI) | payer BC, SELFPAY ==
--- NOTE | 2022-11-08 15:30 | RAD_ITS ---
STUDY: X-RAY - PELVIS AND LEFT HIP REASON FOR EXAM: Male, 72 years old. Hip pain. TECHNIQUE: 3 views of the pelvis and hip. COMPARISON: None. FINDINGS: There is a non-specific bowel gas pattern. Phleboliths. Osteopenia. Mild arthrosis of both sacroiliac joints. Mild arthrosis of the symphysis pubis. Moderate arthrosis of both hips with subchondral cyst formation. RAD/HIP, UNI W/ Pelvis 2-3 Views IMPRESSION: Osteopenia with osteoarthritic changes as described. No acute abnormality or erosive changes.. Electronically Signed: Lewis Arevalo MD at 15:57 EDT ,
--- NOTE | 2022-11-08 15:30 | RAD_ITS ---
STUDY: X-RAY - LUMBAR SPINE REASON FOR EXAM: Male, 72 years old. Fall. Pain. TECHNIQUE: 3 view(s) of the lumbar spine were obtained. COMPARISON: None FINDINGS: Osteopenia. Normal lumbar lordosis. No substantial scoliosis. Normal alignment of the vertebrae. Diffuse lower thoracic and lumbosacral facet sclerosis. Diffuse moderate to marked intervertebral disc space narrowing with osteophyte formation diffusely. Moderate arthrosis of both hips. Vascular calcification. RAD/Lumbar Spine 2 or 3 Views IMPRESSION: Osteopenia with diffuse moderate lower thoracic and lumbosacral spondylosis. No acute abnormality or erosive changes. Electronically Signed: Lewis Arevalo MD at 15:58 EDT ,
== END | disposition home or self-care (01) ==
LOC: RAD 15:23
PROVIDERS: PCP Internal Medicine; Referring Provider Anesthesiology Pain Medicine; Visit Provider Anesthesiology Pain Medicine
DX: M25.552 Pain in left hip (principal); M54.50 Low back pain, unspecified
CPT/HCPCS: 72100; 73502

== ENCOUNTER 2024-04-24 15:00 | Outpatient (RCR) | payer BC, SELFPAY ==
--- NOTE | 2024-03-08 15:16 | HP.PTEVAL_ITS ---
Patient's Visit Information Visit Information Visit Information: RANJIT LOUIS is a 73 year old M referred to Physical Therapy by Dr. Adolfo Thompson MD with a diagnosis of L Anterior Total Hip replacement. Date of Evaluation: 03/08/24 Physical Therapist: Jaxon Blandon, PT, SASCHA, SCS, CSCS Visit Plan Frequency: 3x /Week Duration: 4 Weeks Plan: I think Ranjit should progress well, I believe he did too much the day of surgery and I spoke to him about the balance between activity and rest. Will continue to monitor swelling and tenderness over lateral hip. 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 He has been managing his hip pain with medications for several years. 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 Pain Left Hip: Pain Intensity (Out of 10): 4 Pain Intensity Range: 2 and 7 Comment: Incision site is okay its the side that is pretty sore Objective Objective: Patient is ambulating with wheeled walker community distances. He appears slightly paler than normal. Incision is covered with a small amount of blood in dressing. Next visit will change once dressing arrive. There is a significant amount of bruising around his incision which I estimate to be between 6-10 around his incision. He is tender to touch to the later ITB area secondary to swelling. Was able to perform a slr in supine. Will remeasure ROM and MMT next visit. Dorsal peddle pulse was palpable bilaterally and no tenderness to palpation at his B calf. Goals Goal 1:: Understand the healing process and importance of balancing activity with rest Goal Time Frame: 1 Week Goal 2:: Return Demo HEP Goal Time Frame: 1 Week Goal 3:: Improve MMT 10% once tested Goal Time Frame: 4-6 Weeks Goal 4:: Ambulate without assistive device Goal Time Frame: 2-4 Weeks Rehabilitation Potential Physical Therapy Diagnosis: LTHR sx 12.5.24 Rehabilitation Potential: Excellent Anticipated Interventions Patient/Client Instruction: Educate patient on: Condition and Plan of Care For the Purpose of:: To decrease pain, To increase ROM, To improve gait and locomotor functions and To increase flexibility/ROM Therapeutic Exercise to Include: Strength training and Coordination Comment: HEP was ankle pumps hourly, quad sets, knee flexion, slr, standing hip flexion, abd, ext For the Purpose of:: To decrease pain, To decrease swelling/inflammation, To increase ROM, To improve gait and locomotor functions and To increase flexibility/ROM Manual Therapy Techniques to Include: Petrissage, Massage and Passive ROM For the Purpose of:: To decrease pain, To increase ROM, To improve muscle performance and motor function and To increase flexibility/ROM Cryotherapy (ice pack, ice massage): Yes Vasopneumatic device: Yes Comment: 20 minutes level 3 For the Purpose of:: To decrease swelling/inflammation Text: Thank you for the opportunity to evaluate your patient. For Medicare and Medicare HMO plans, please review the plan of care and approve it. It will need to be FAXED BACK to us at [phone] for Medicare purposes. For Medicare only, by signing this I certify the plan of care. Please let me know if there are questions or concerns regarding this plan of care. Physician Signature: Date:
--- NOTE | 2024-03-08 15:17 | HP.PTEVAL_ITS ---
Patient's Visit Information Visit Information Visit Information: RANJIT LOUIS is a 73 year old M referred to Physical Therapy by Dr. Adolfo Thompson MD with a diagnosis of L Anterior Total Hip replacement. Date of Evaluation: 03/08/24 Physical Therapist: Jaxon Blandon, PT, SASCHA, SCS, CSCS Visit Plan Frequency: 3x /Week Duration: 4 Weeks Plan: I think Ranjit should progress well, I believe he did too much the day of surgery and I spoke to him about the balance between activity and rest. Will continue to monitor swelling and tenderness over lateral hip. 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 He has been managing his hip pain with medications for several years. 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 Pain Left Hip: Pain Intensity (Out of 10): 4 Pain Intensity Range: 2 and 7 Comment: Incision site is okay its the side that is pretty sore Objective Objective: Patient is ambulating with wheeled walker community distances. He appears slightly paler than normal. Incision is covered with a small amount of blood in dressing. Next visit will change once dressing arrive. There is a significant amount of bruising around his incision which I estimate to be between 6-10 around his incision. He is tender to touch to the later ITB area secondary to swelling. Was able to perform a slr in supine. Will remeasure ROM and MMT next visit. Dorsal peddle pulse was palpable bilaterally and no tenderness to palpation at his B calf. Goals Goal 1:: Understand the healing process and importance of balancing activity with rest Goal Time Frame: 1 Week Goal 2:: Return Demo HEP Goal Time Frame: 1 Week Goal 3:: Improve MMT 10% once tested Goal Time Frame: 4-6 Weeks Goal 4:: Ambulate without assistive device Goal Time Frame: 2-4 Weeks Rehabilitation Potential Physical Therapy Diagnosis: LTHR sx 12.5.24 Rehabilitation Potential: Excellent Anticipated Interventions Patient/Client Instruction: Educate patient on: Condition and Plan of Care For the Purpose of:: To decrease pain, To increase ROM, To improve gait and locomotor functions and To increase flexibility/ROM Therapeutic Exercise to Include: Strength training and Coordination Comment: HEP was ankle pumps hourly, quad sets, knee flexion, slr, standing hip flexion, abd, ext For the Purpose of:: To decrease pain, To decrease swelling/inflammation, To increase ROM, To improve gait and locomotor functions and To increase flexibility/ROM Manual Therapy Techniques to Include: Petrissage, Massage and Passive ROM For the Purpose of:: To decrease pain, To increase ROM, To improve muscle performance and motor function and To increase flexibility/ROM Cryotherapy (ice pack, ice massage): Yes Vasopneumatic device: Yes Comment: 20 minutes level 3 For the Purpose of:: To decrease swelling/inflammation Text: Thank you for the opportunity to evaluate your patient. For Medicare and Medicare HMO plans, please review the plan of care and approve it. It will need to be FAXED BACK to us at [phone] for Medicare purposes. For Medicare only, by signing this I certify the plan of care. Please let me know if there are questions or concerns regarding this plan of care. Physician Signature: Date:
--- NOTE | 2024-08-08 16:24 | HP.PTDCSUM ---
Discharge Summary D/C summary: It has been my pleasure to treat RANJIT EASTMAN referred by Dr. Adolfo Thompson MD, with the diagnosis of L Anterior Total Hip replacement for a total of 19 visit(s). Discharge Date: 05/09/24 Please see the following information for a summary of their discharge status. Subjective Subjective: I've had the flu for the last several weeks but I'm starting to turn the corner. I'm ready to think I'm ready to workout on my know. I feel pretty good just a little achy when I sit for too long Pain Left Hip: Pain Intensity (Out of 10): 0 LBP: Pain Intensity (Out of 10): 0 Overall Improvement % Improvement: 95 Objective Objective/Function: Ambulating without assistive device with no noticeable limb or deviation. R hip flexion 17.2 L hip flexion 18.0m leg ext/curl R 35/31 L 38/35, seated int/ext rot was 30/25 B which I think he can improve. Goals Goal 1:: Understand the healing process and importance of balancing activity with rest Goal Progress: Goal Met Goal 2:: Return Demo [facility] Goal Progress: Goal Met Goal 3:: Improve MMT 10% once tested Goal Progress: Goal Met Goal 4:: Ambulate without assistive device Goal Progress: Goal Met Plan Plan: Discharge to [facility], D/C Information Discharge Comments: Ranjit is progressing well despite his reason FLU dx. Overall he is tight so the emphasis been on flexibility while increasing his strength. He should continue to do well. d/c sentence: If there are questions or concerns regarding this patient's physical therapy, please feel free to call me at [phone]. Thank you for the referral of this patient. Sincerely, Jaxon Blandon, PT, SASCHA, SCS, CSCS Balance/Gait/Functional tests Balance/Special Test Scores Lower Extremity Functional Score: 63 30 Second Chair Rise Test Seconds: 18 Improvement % Improvement: 95
--- NOTE | 2024-08-08 16:25 | HP.PT.NRP ---
Patient Information Patient Information: SACHIN EASTMAN was seen in my office for initial evaluation on 03/08/24. The following Plan of Care was established for this patient: POC Established Initial Frequency: 3x /Week Initial Duration: 4 Weeks Anticipated Interventions Patient/Client Instruction: Educate patient on: Condition and Plan of Care For the Purpose of:: To decrease pain, To increase ROM, To improve gait and locomotor functions and To increase flexibility/ROM Therapeutic Exercise to Include: Strength training and Coordination For the Purpose of:: To decrease pain, To decrease swelling/inflammation, To increase ROM, To improve gait and locomotor functions and To increase flexibility/ROM Manual Therapy Techniques to Include: Petrissage, Massage and Passive ROM For the Purpose of:: To decrease pain, To increase ROM, To improve muscle performance and motor function and To increase flexibility/ROM Cryotherapy (ice pack, ice massage): Yes Vasopneumatic device: Yes Comment: 20 minutes level 3 For the Purpose of:: To decrease swelling/inflammation Last Seen Last Seen: This patient was last seen in our office . Pertinent comments regarding their Physical therapy will appear below: At this point I will be discontinuing this patient from physical therapy. I would be happy to see this patient again in the future if found appropriate by the physician. Thank you! Jaxon Blandon, PT, SASCHA, SCS, CSCS Balance/Gait/Functional tests Balance/Special Test Scores Lower Extremity Functional Score: 63 30 Second Chair Rise Test Seconds: 18
== END 2024-04-24 19:00 | disposition home or self-care (01) ==
LOC: PT 15:00
PROVIDERS: PCP Internal Medicine; Referring Provider Orthopaedic Surgery Adult Reconstructive Orthopaedic Surgery; Visit Provider Orthopaedic Surgery Adult Reconstructive Orthopaedic Surgery
DX: Z96.642 Presence of left artificial hip joint (principal)
CPT/HCPCS: 97016; 97110; 97140; 97161; 97164; 97530

== ENCOUNTER → 2025-03-06 | Outpatient (CLI) | payer BC, SELFPAY ==
[2025-03-06 18:02] LABS: PSA,Total- Diagnostic 9.62 ng/mL (0.00-4.00)
== END | disposition home or self-care (01) ==
LOC: CIMLAB 14:14
PROVIDERS: PCP Internal Medicine
DX: C61 Malignant neoplasm of prostate (principal)
CPT/HCPCS: 36415; 84153